=== PATIENT | female | born 1985 | race Caucasian/White ===

== ENCOUNTER → 2021-01-24 | Outpatient (CLI) | payer SELFPAY ==
[2021-01-24 17:00] LABS: HEMOGLOBIN 13.6 gm/dl (12.3-15.3); RED BLOOD COUNT 4.5 M/UL (4.00-5.10); WHITE BLOOD COUNT 7.3 K/UL (4.5-11.0)
[2021-01-24 17:36] LABS: BUN/CREATININE RATIO 17 (0-10)
[2021-01-26 08:13] LABS: RHEUMATOID ARTHRITIS FACTOR <10.0 IU/mL (0.0-13.9); VITAMIN D, 25-HYDROXY 57.8 ng/mL (30.0-100.0)
[2021-01-27 12:10] LABS: SJOGREN'S ANTI-SS-B <0.2 AI (0.0-0.9)
[2021-01-28 15:09] LABS: ANGIOTENSIN-CONVERTING ENZYME 26 U/L (14-82)
== END ==
LOC: LAB 16:21
PROVIDERS: Nurse Practitioner Family
DX: M25.50 Pain in unspecified joint (principal); G44.89 Other headache syndrome; G43.009 Migraine without aura, not intractable, without status migrainosus; M79.7 Fibromyalgia; Z00.00 Encounter for general adult medical examination without abnormal findings
CPT/HCPCS: 80053; 82164; 82607; 83921; 84443; 85025; 85652; 86038; 86140; 86235; 86431

== ENCOUNTER → 2021-05-24 | Outpatient (CLI) | payer SELFPAY ==
[2021-05-25 09:13] LABS: RHEUMATOID ARTHRITIS FACTOR <10.0 IU/mL (0.0-13.9); VITAMIN D, 25-HYDROXY 52.3 ng/mL (30.0-100.0)
[2021-05-25 15:08] LABS: EBV AB VCA, IGG <18.0 U/mL (0.0-17.9); EBV AB VCA, IGM <36.0 U/mL (0.0-35.9)
== END ==
LOC: LAB 11:43
PROVIDERS: Nurse Practitioner Family
DX: M25.50 Pain in unspecified joint (principal); D89.9 Disorder involving the immune mechanism, unspecified; R76.8 Other specified abnormal immunological findings in serum; M79.10 Myalgia, unspecified site; E55.9 Vitamin D deficiency, unspecified
CPT/HCPCS: 36415; 82550; 82728; 83520; 85652; 86140; 86200; 86431